=== PATIENT | female | born 1950 | race Caucasian/White ===

== ENCOUNTER 2021-12-12 07:09 | Day surgery (SDC) | payer MEDICARE ==
[2021-12-12] MEDS ORDERED: Lactated Ringers 1,000 ML IV SCH (07:45)
[2021-12-12] MEDS ORDERED: Midazolam 1 MG/ML 2 ML SDV ONE (08:00)
[2021-12-12] MEDS ORDERED: fentaNYL 100 MCG/2 ML SDV ONE (08:00)
[2021-12-12] MEDS ORDERED: Propofol 200 MG/20 ML SDV ONE (08:00)
== END 2021-12-12 10:37 | disposition home or self-care (01) ==
LOC: JP.SDS 07:09
PROVIDERS: ATTEND Family Medicine
DX: D12.4 Benign neoplasm of descending colon (principal); D12.5 Benign neoplasm of sigmoid colon; I25.2 Old myocardial infarction; I48.0 Paroxysmal atrial fibrillation; Z79.899 Other long term (current) drug therapy
CPT/HCPCS: 45380; J2250; J2704; J3010; J7120